=== PATIENT | male | born 1950 | race Caucasian/White ===

== ENCOUNTER 2023-08-25 08:05 | Day surgery (SDC) | payer OTHER, SELFPAY ==
[2023-08-25] VITALS (13 sets, daily range): BP systolic 120–196; BP diastolic 82–110; BMI 31.1
[2023-08-25 08:55] LABS: Hematocrit 47.1 % (39.0-52.0); Hemoglobin 16.6 g/dL (13.0-18.0); Mean Corp Hgb Conc. 35.2 g/dL (33.0-37.0); Mean Corpuscular Hgb 30.5 pg (27.0-31.0); Mean Corpuscular Volume 86.6 fL (80.0-94.0); Platelet Count 150 10^3/uL (130-400); Red Blood Cell Count 5.44 10^6/uL (4.70-6.10); White Blood Cell Count 5.4 10^3/uL (4.8-10.8)
[2023-08-25 09:54] LABS: Blood Urea Nitrogen 16 mg/dl (9-20); Calcium 9.9 mg/dl (8.4-10.2); Carbon Dioxide 24 mmol/L (22-30); Chloride 106 mmol/L (98-107); Estimated Creatinine Clearance 75 ml/min; Glucose 109 mg/dl (70-99); Potassium 4.3 mmol/L (3.5-5.1); Sodium 139 mmol/L (135-145); eGFR > 60.00
--- NOTE | 2023-08-25 11:35 | ITS.CL.PACE ---
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
Pacemaker Implant
Procedure Report:
Date of Procedure: August 25, 2023
Patient : 1950
Procedure: Pacemaker Implantation.
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
Implants:
Pulse Generator: Medtronic; Model# W1 SR 01; SN: [id number]
RV Lead: Medtronic; Model# 4074; SN: [id number] 600 V
Technique: A time out was performed. The procedure site was identified. The patient was anesthetized by the anesthesia service. Preoperative sedation was administered. The patient was prepped and draped in the usual fashion. Local anesthetic was
applied to the left prepectoral subcutaneous tissue. A 3 inch incision was made 2.5 inches below the left clavicle. A subcutaneous pocket was created with blunt and sharp dissection and hemostasis controlled with Bovie cautery. The left axillary
vein was accessed within the pocket without difficulty. Hemostasis was excellent. The leads were introduced with 7 Fr hemostatic peel away introducer sheaths. The ventricular lead was placed at the right ventricular apex. 10 volt pacing did not
capture the diaphragm. The leads were secured to the pectoralis muscle and fascia. The leads were appropriately attached to the device. The pocket was irrigated with antibiotic solution. The device and leads were placed in the pocket. The incision
was closed in three layers with absorbable suture. The estimated blood loss was minimal. There were no complications.
Fluoroscopy: 1.3 minutes and 3.1 mGy
Lead Analysis:
RV lead: R: 3.8 mV; Threshold: 0.4 V @ 0.5 ms; Impedance: 855 ohms.
Final Programming: VVI 50
Conclusion: Uncomplicated Medtronic pacemaker implant.
Recommendation: Routine post pacemaker care.
cc: Dr. Perez Moya
[2023-08-25] MEDS: ANCEF 5 IV (15:41)
== END 2023-08-25 15:56 | disposition home or self-care (01) ==
LOC: CATH 08:05
PROVIDERS: ATTENDING PHYSICIAN Internal Medicine Cardiovascular Disease; FAMILY PHYSICIAN Internal Medicine
DX: I44.2 Atrioventricular block, complete (principal); I45.2 Bifascicular block; I48.21 Permanent atrial fibrillation; I25.10 Atherosclerotic heart disease of native coronary artery without angina pectoris; I10 Essential (primary) hypertension; E78.5 Hyperlipidemia, unspecified; Z87.891 Personal history of nicotine dependence; Z79.01 Long term (current) use of anticoagulants
CPT/HCPCS: 33207; C1892; 71045; 80048; 85027; 93005; C1786; C1898; Q9967